=== PATIENT | female | born 1935 | race Caucasian/White ===

== ENCOUNTER 2016-07-30 19:53 | Emergency (ER) | payer MEDICARE ==
--- NOTE | 2016-07-30 20:25 | ER Document Report ---
ED Medical Screen (RME) - General Stated Complaint: FACIAL PAIN Time seen by provider: 20:20 Mode of Arrival: Wheelchair Information source: Patient Notes: 80-year-old female presents to ED for pain in left eye and face. Patient's caregiver states she has been complaining of the eye for a month but today she started complaining about her face hurting. She states she has not seen a doctor for this pain in the last month. She has not been taken any medication for this pain. Caregiver states she has a history of diabetes cardiac problems and dementia. Patient states she's 3 times. Caregiver states she's been with the patient for about 2 months 24 hours 7 days a week. Her primary doctor is Dr Puentes I have greeted and performed a rapid initial assessment of this patient. A comprehensive ED assessment and evaluation of the patient, analysis of test results and completion of medical decision making process will be conducted by an additional ED providers. TRAVEL OUTSIDE OF THE [place] IN LAST 30 DAYS: No - Related Data Allergies/Adverse Reactions: amoxicillin [From Amoxil] Allergy (Severe, Verified 03/20/16 11:10) ? levofloxacin [From Levaquin] Allergy (Severe, Verified 03/20/16 11:10) ? Penicillins Allergy (Severe, Verified 03/20/16 11:10) ? Past Medical History - Past Medical History Cardiac Medical History: Reports: Hx Hypertension - on meds Denies: Hx Coronary Artery Disease, Hx Heart Attack - ? 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 Denies: Hx Seizures Endocrine Medical History: Reports: Hx Diabetes Mellitus Type 2 Musculoskeltal Medical History: Reports Hx Arthritis - all over,gout? Past Surgical History: Reports: Hx Adenoidectomy, Hx Tonsillectomy - Immunizations Hx Diphtheria, Pertussis, Tetanus Vaccination: No
--- NOTE | 2016-07-30 22:59 | ER Document Report ---
ED General - General Mode of Arrival: Wheelchair Information source: Patient TRAVEL OUTSIDE OF THE [place] IN LAST 30 DAYS: No - HPI Onset: Yesterday Onset/Duration: Persistent Quality of pain: Burning - General Chief Complaint: Eye Pain Stated Complaint: FACIAL PAIN Notes: Patient is an 80-year-old female that presents to the emergency department today with complaints of facial pain. Family and caregiver at bedside also state the patient's eyes are "more puffy than normal". Family states the pain began last night and has continued through today, becoming worse at times. Family states patient intermittently the patient has what appears to be a "red face". Patient had skin cancer removed under her left eye in March of 2016. Family states the patient has had a runny nose however she has had allergies her whole life and this is consistent with her allergies during this time of year. Patient is demented at baseline according to family. Patient has a history of diabetic neuropathy and is on Neurontin daily. Family and caregiver deny any fevers, nausea, vomiting, diarrhea, abdominal pain, chest pain, or mouth pain. (JORDIN LOGAN) - Related Data Allergies/Adverse Reactions: amoxicillin [From Amoxil] Allergy (Severe, Verified 03/20/16 11:10) ? levofloxacin [From Levaquin] Allergy (Severe, Verified 03/20/16 11:10) ? Penicillins Allergy (Severe, Verified 03/20/16 11:10) ? 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 Endocrine Medical History: Reports: Hx Diabetes Mellitus Type 2 Renal/ Medical History: Denies: Hx Peritoneal Dialysis Malignancy Medical History: Reports: Hx Skin Cancer Musculoskeltal Medical History: Reports Hx Arthritis Past Surgical History: Reports: Hx Adenoidectomy, Hx Tonsillectomy, Other - skin cancer removal over left cheek - Immunizations Hx Diphtheria, Pertussis, Tetanus Vaccination: No Hx Pneumococcal Vaccination: 03/17/08 Review of Systems - Review of Systems Constitutional: denies: Fever EENT: See HPI, Other - facial pain, puffy eyes, runny nose Cardiovascular: denies: Chest pain Respiratory: No symptoms reported Gastrointestinal: denies: Abdominal pain, Diarrhea, Nausea, Vomiting Genitourinary: No symptoms reported Female Genitourinary: No symptoms reported Musculoskeletal: No symptoms reported Skin: No symptoms reported Hematologic/Lymphatic: No symptoms reported Neurological/Psychological: No symptoms reported -: Yes All other systems reviewed and negative Physical Exam - General General appearance: Alert In distress: None - HEENT Head: Normocephalic, Atraumatic, Other - Tenderness with palpation infraorbitally and over the left maxilla, no mandible tenderness with palpation. Conjunctiva: Normal Extraocular movements intact: Yes Pupils: Pinpoint - bilaterally consistent with clonadine Visual acuity- Right eye: 20/40 Visual acuity- Left eye: 20/40 Visual acuity- Both eyes: 20/40 Corrective lenses worn: No Fundascopic: Other - unable to assess secondary to pinpoint pupils Mucous membranes: Moist Pharynx: Normal - Respiratory Respiratory status: No respiratory distress Chest status: Nontender Breath sounds: Normal Chest palpation: Normal - Cardiovascular Rhythm: Bradycardia - consistent with clonadine Heart sounds: Normal auscultation Murmur: No - Abdominal Inspection: Normal Distension: No distension Bowel sounds: Normal Tenderness: Nontender - Extremities General upper extremity: Normal inspection, Normal ROM, Normal strength. No: Edema General lower extremity: Normal inspection, Normal ROM, Normal strength. No: Edema - Neurological Cognition: Other - demented at baseline according to family Speech: Normal - Psychological Associated symptoms: Normal affect, Normal mood - Skin Skin Temperature: Warm Skin Moisture: Dry Skin Color: Normal - HEENT Notes: Normal oral mucosa. Upper dentures in place. No intraoral abnormalities. (JORDIN LOGAN) Course - Re-evaluation Re-evalutation: 07/30/16 23:03 Patient with history of dementia and diabetes presents with 2 days of left facial pain without trauma. She is afebrile and nontoxic appearing. Appears well -hydrated. No focal neurologic deficits. The patient has no other symptomatology other than her chronic rhinorrhea from allergies. Exam does not reveal any acute findings other than some mild tenderness to palpation of the maxilla/infraorbital region of the eye. Patient is 2 months status post of skin cancer in the region of the pain that she is describing. Given that she is diabetic and does have history of diabetic foot neuropathy, high suspicion for neuralgia. Have recommended increasing her gabapentin from 1 pill in the morning and 2 at night to 2 pills twice a day and then possibly up to 2 pills 3 times a day. Have also recommended that caregiver and daughter call PCP in the morning to let them know about this ED visit. Her daughter and caregiver opportunity to ask questions and they agree with plan and follow-up. (RONY VALADEZ) Discharge - Discharge Clinical Impression: Neuralgia facialis vera Condition: Stable Disposition: HOME, SELF-CARE Instructions: Neuralgia ([facility]) Additional Instructions: Increase gabapentin dosage to 2 300mg pills twice a day, and then if not improvement, with the consultation of your physician, up to 3 times daily. Please call physician the morning to inform them of this visit to the emergency department. Return for fevers, vomiting so not to keep down fluids, chest pain, difficulty breathing, neurologic deficits or other worrisome abnormalities. Referrals: CHARISSE PURVIS MD [Primary Care Provider] - Follow up as needed [employer] Attestation: 07/30/16 23:10 I personally performed the services described in the documentation, reviewed and edited the documentation which was dictated to the scribe in my presence, and it accurately records my words and actions. (RONY VALADEZ)
[2016-07-30 23:54] VITALS: BP 133/81
== END 2016-07-30 23:51 | disposition home or self-care (01) ==
LOC: ER 19:53
DX: G51.1 Geniculate ganglionitis (principal); I10 Essential (primary) hypertension; E11.9 Type 2 diabetes mellitus without complications; F03.90 Unspecified dementia, unspecified severity, without behavioral disturbance, psychotic disturbance, mood disturbance, and anxiety; Z86.73 Personal history of transient ischemic attack (TIA), and cerebral infarction without residual deficits; Z85.828 Personal history of other malignant neoplasm of skin; Z88.0 Allergy status to penicillin
CPT/HCPCS: 99283

== ENCOUNTER → 2016-08-25 | Outpatient (CLI) | payer MEDICARE ==
[2016-08-25 12:11] LABS: HEMATOCRIT 35.8 % (36.0-47.0); HEMOGLOBIN 11.9 g/dL (12.0-15.5); HGB HCT DIFFERENCE -0.1; MEAN CORPUSCULAR HGB CONC 33.3 g/dL (32.0-36.0); MEAN CORPUSCULAR VOLUME 93 fl (80-97); RED BLOOD COUNT 3.84 10^6/uL (3.72-5.28); RED CELL DISTRIBUTION WIDTH 14.1 % (11.5-14.0); WHITE BLOOD COUNT 8.2 10^3/uL (4.0-10.5)
[2016-08-25 12:41] LABS: ANION GAP 13 (5-19); BLOOD UREA NITROGEN 89 mg/dL (7-20); CALCIUM 9.6 mg/dL (8.4-10.2); CARBON DIOXIDE 24 mmol/L (22-30); CHLORIDE 107 mmol/L (98-107); GLUCOSE 103 mg/dL (75-110); POTASSIUM 5.1 mmol/L (3.6-5.0); SODIUM 144.3 mmol/L (137-145)
== END ==
LOC: OD 11:17
PROVIDERS: ATTEND Internal Medicine Nephrology
DX: N18.3 Chronic kidney disease, stage 3 (moderate) (principal); E87.5 Hyperkalemia; R80.9 Proteinuria, unspecified; D64.9 Anemia, unspecified
CPT/HCPCS: 36415; 80048; 85027